=== PATIENT | female | born 1955 | race Caucasian/White ===

== ENCOUNTER 2017-05-29 10:43 | Outpatient (RCR) | payer OTHER ==
[2016-07-25 10:09] VITALS: BMI 17.5
[~2017-05-29 10:43] MED LIST: ACET-2031 PO; ACET600C3 PO; ASC500 PO; ASCO-191 PO; ASCO120C2 PO; ASPI-1471 PO; BLOO-1326 MC; BLOO1STR38 MC; CAPRYLIC ACID PO; CHOL500016 PO; CHOL500045 PO; CIPR-344 PO; COCO118.2 PO; CYAN100017 PO; FERR240T18 PO; FERR240T23 PO; FISH OIL1 CAP PO; GLUC-139 PO; GLUC1KIT4 IJ; GUAI600T57 PO; GYMNEMA SYLVESTRE PO; INSU100I28 SQ; INSU100I30 SUBQ; INSU100V24 SQ; L. A1CAP14 PO; LUTE20CA11 PO; MAGN100T2 PO; MCTOIL PO; MULT1CAP41 PO; NAPR-744 PO; NEED1DIS64 MC; OMEG-23 PO; POTA10CA40 PO; POTA20TA10 PO; POTASSIUM PO; PRAS1TAB PO; PRAS25CA7 PO; ROSU20TA3 PO; S-AD200T5 PO; SIMV-42 PO; THIO50TA9 PO; UBID50CA PO; UBIQ100C3 PO; VITA-175 PO; ZINC PICOLINATE PO; ZINC1POW MC; [UNRECOGNIZED DRUG - CODE] MC; [UNRECOGNIZED DRUG - CODE] MC; [UNRECOGNIZED DRUG - CODE] PO; [UNRECOGNIZED DRUG - CODE] PO; [UNRECOGNIZED DRUG - OTHER] PO; [UNRECOGNIZED DRUG - OTHER] PO; [UNRECOGNIZED DRUG - SUPPLY]
--- NOTE | 2017-05-30 17:03 | Medical Nutrition Therapy ---
Nutritional Education Nutrition Education Topic: Diabetic Nutrition Learning Readiness: Eager Teaching Methods: Discussion, Demonstration Response to Teaching: Verbalize understanding Teaching Recipient: Patient Nutrition Counseling: Late entry for 05/30 : Provided diabetic eduction and insertion of Medtronic 670 insulin pump. Pt does not have CGM sensors at this time. Pt will use manual mode until sensors can be used. Pt will check BG 8X/day. Pt on the following regiment: Basel rate 10:00 PM- 6:00 AM .45, 6:00 am- 10 .6 Carb ratio 16 Insulin sensitivity 60, Active insulin time 3.5 hrs. Will call within 24 hrs, 3 days and 1 week to ensure to issues. 05/30 @ 15:00 Pt called, BG running 220's today with recent BG of 305. Pt had negative ketones. Instucted pt to give bolis per pumps recommended amount and recheck BG in 1 hr. Increased daytime basel to .75. 05/30 @ 16:00 BG down 297. Pt thougth she might have dislodged her sensor after shower and not recieving insulin. Instucted pt to give bolis dose by injection and check BG in 1 hr. If not declining, change infusion set. Nutrition Monitoring & Eval Nutritional Comment: Provided 2 hrs diabetic eduction and insertion of insulin pump Copies To Copies to: RENETTA MEADE PHARMD, BETH May 30, 2017 17:03
--- NOTE | 2017-05-31 14:10 | Medical Nutrition Therapy ---
Nutritional Education Nutrition Education Topic: Diabetic Nutrition Learning Readiness: Interested Teaching Methods: Discussion Response to Teaching: Verbalize understanding Teaching Recipient: Patient Nutrition Counseling: Pt's BG declined following adjustment of sensor site and 2gm insulin given by pen. Pt believed she didn't not connect correctly after shower. Overnight pt has a low of 66 then ranged 77-84. Pt gave herself 2gm CHO and BG hussain to 84. BG 2 hrs after breakfast meal was 164. Reviewed pt past meal intake. CHO ratio was based on pt reporting ~ 3gm CHO bolis/meal but revieweing meals, pt is probably closer to a 10gm CHO: 1U insulin. Reduced CHO ratio to 14 from 1. Will cont to work with pt to ensure better BG control. Nutrition Monitoring & Eval Nutritional Comment: Provided 1 hrs diabetic eduction and evaluation of insulin pump data Copies To Copies to: RENETTA MEADE PHARMD, BETH May 31, 2017 14:10
== END 2017-06-26 12:35 | disposition home or self-care (01) ==
LOC: DIET 10:43
PROVIDERS: ATTEND Pharmacist Pharmacotherapy
DX: Z71.3 Dietary counseling and surveillance (principal); E11.9 Type 2 diabetes mellitus without complications
CPT/HCPCS: G0109 ×2

== ENCOUNTER 2017-07-31 10:32 | Outpatient (RCR) | payer OTHER ==
[2016-07-25 10:09] VITALS: BMI 17.5
[~2017-07-31 10:32] MED LIST changes: +ROSU20TA13 PO; -ROSU20TA3 PO
--- NOTE | 2017-07-31 16:42 | Medical Nutrition Therapy ---
Nutritional Education Nutrition Education Topic: Diabetic Nutrition Learning Readiness: Interested Teaching Methods: Discussion, Handout, Demonstration Response to Teaching: Verbalize understanding Teaching Recipient: Patient Nutrition Counseling: Provided education on using Medtronic 670 insulin pump. Reviewed CGM and transmitter usage, cleaning, charging. Pt inserted CGM and connected to insulin pump. Pt will use CGM with manual mode of pump for 1 week and then can switch over to automatic mode. Reviewed auto mode with pt and expectations including pump adjusting basal delivery based on CGM, basal delivery stopping when anticiated low, need for calibration 2-3X/day and need to cont bolis for meal and correction dose when recommended by pump. Pt has been asked to download reports on [employer] to allow monitoring. Nutrition Monitoring & Eval RD Patient Assessment Time: [address] Assessment Type: RD Education Nutritional Comment: Provided 60 minutes diabetes education in a group setting focusing on insulin pump management Copies To Copies to: CHANO BETTENCOURT MD; RENETTA MEADE PHARMD, BETH Jul 31, 2017 16:42
== END 2017-09-04 ==
LOC: DIET 10:32
PROVIDERS: ATTEND Pharmacist Pharmacotherapy
DX: E11.9 Type 2 diabetes mellitus without complications (principal)
CPT/HCPCS: G0109 ×2

== ENCOUNTER → 2017-09-23 | Outpatient (CLI) | payer OTHER ==
[2016-07-25 10:09] VITALS: BMI 17.5
== END ==
LOC: LAB 10:29
PROVIDERS: ATTEND Emergency Medicine
DX: E11.9 Type 2 diabetes mellitus without complications (principal)
CPT/HCPCS: 36415; 82306; 82465; 83036; 83718; 84478

== ENCOUNTER → 2017-12-05 | Outpatient (CLI) | payer OTHER ==
[2016-07-25 10:09] VITALS: BMI 17.5
--- NOTE | 2017-12-05 15:18 | RADIOLOGY IMAGING REPORT ---
FACILITY: [facility] PATIENT NAME: ELIZABETH GARDUNO : [id number] MR: [id number] V: [id number] EXAM DATE: ORDERING PHYSICIAN: CHANO BETTENCOURT TECHNOLOGIST: Trish Aldana PROCEDURE:BILATERAL DIGITAL SCREENING MAMMOGRAM WITH CAD ASSISTED INTERPRETATION & 3D TOMOSYNTHESIS COMPARISON:Prior mammograms 11/09/16, 09/09/14, 08/19/13, 08/11/12, 01/02/11. INDICATIONS:SCREENING FINDINGS: Moderately dense mildly heterogeneous fibroglandular tissue is seen throughout the breasts. The parenchymal pattern has remained stable allowing for difference in mammographic technique & patient positioning. There is no evidence of malignant appearing mass, malignant appearing calcifications or other secondary sign of malignancy in either breast. DIAGNOSTIC CATEGORY 1--NEGATIVE. RECOMMENDATIONS: ROUTINE MAMMOGRAM AND CLINICAL EVALUATION. IMPRESSION: BIRADS 1: Negative. No significant abnormality is seen. Dictated by: Elisabet Heredia M.D. on 12/05/2017 at 9:40 Transcribed by: LESTER on 12/05/2017 at 10:10 Approved by: Elisabet Heredia M.D. on 12/05/2017 at 15:17 [facility]
== END ==
LOC: MAMO 00:25
PROVIDERS: ATTEND Emergency Medicine
DX: Z12.31 Encounter for screening mammogram for malignant neoplasm of breast (principal)
CPT/HCPCS: 77063; 77067

== ENCOUNTER → 2018-04-07 | Outpatient (CLI) | payer OTHER ==
[2016-07-25 10:09] VITALS: BMI 17.5
[~2018-04-07] MED LIST changes: -ROSU20TA13 PO; +ROSU20TA5 PO
[2018-04-07 10:39] LABS: PLATELET COUNT, AUTOMATED 295 K/uL (150-450)
[2018-04-07 11:16] LABS: LDL CHOLESTEROL 111 mg/dl
== END ==
LOC: LAB 10:23
PROVIDERS: ATTEND Emergency Medicine
DX: E11.9 Type 2 diabetes mellitus without complications (principal)
CPT/HCPCS: 36415; 82040; 82247; 82310; 82374; 82435; 82465; 82565; 82947; 83036; 83718; 84075; 84132; 84155; 84295; 84450; 84460; 84478; 84520; 85025

== ENCOUNTER → 2018-04-17 | Outpatient (CLI) | payer OTHER ==
[2016-07-25 10:09] VITALS: BMI 17.5
[~2018-04-17] MED LIST changes: +FISH1CAP15 PO; +GLUC-125 PO
== END ==
LOC: LAB 10:05
PROVIDERS: ATTEND Emergency Medicine
DX: R20.8 Other disturbances of skin sensation (principal); E11.9 Type 2 diabetes mellitus without complications
CPT/HCPCS: 36415; 82043; 82607; 83735

== ENCOUNTER → 2018-06-10 | Outpatient (CLI) | payer OTHER ==
[2016-07-25 10:09] VITALS: BMI 17.5
[~2018-06-10] MED LIST changes: +SIMV-54 PO; +SIMV10TA96 PO; +SIMV10TA98 PO
[2018-06-10 14:04] LABS: LDL CHOLESTEROL 102 mg/dl
== END ==
LOC: LAB 13:12
PROVIDERS: ATTEND Emergency Medicine
DX: E78.5 Hyperlipidemia, unspecified (principal)
CPT/HCPCS: 36415; 82465; 83718; 84478

== ENCOUNTER → 2018-07-15 | Outpatient (CLI) | payer OTHER ==
[2016-07-25 10:09] VITALS: BMI 17.5
[~2018-07-15] MED LIST changes: +ATOR40TA69 PO; +ROSU20TA23 PO
== END ==
LOC: LAB 10:18
PROVIDERS: ATTEND Emergency Medicine
DX: E78.5 Hyperlipidemia, unspecified (principal)
CPT/HCPCS: 36415; 82465; 83718; 84478